=== PATIENT | female | born 1985 | race Caucasian/White ===

== ENCOUNTER 2017-02-06 12:00 | Emergency (ER) | payer OTHER | END 2017-02-06 13:10 | disposition left against medical advice (07) | LOC: ER1 12:00 | DX: Z53.21 Procedure and treatment not carried out due to patient leaving prior to being seen by health care provider (principal) ==

== ENCOUNTER 2017-02-06 21:50 | Emergency (ER) | payer OTHER ==
[2017-02-07 01:04] LABS: BUN/CREATININE RATIO 18 (0-10)
[2017-02-07 01:09] LABS: HEMOGLOBIN 13.5 gm/dl (12.3-15.3); WHITE BLOOD COUNT 9.7 K/UL (4.5-11.0)
[2017-02-07 01:12] LABS: RED BLOOD COUNT 4.56 M/UL (4.00-5.10)
== END 2017-02-07 03:00 | disposition home or self-care (01) ==
LOC: ER1 21:50
PROVIDERS: Physician Assistant
DX: F31.30 Bipolar disorder, current episode depressed, mild or moderate severity, unspecified (principal); F17.210 Nicotine dependence, cigarettes, uncomplicated; Z88.0 Allergy status to penicillin; Z79.899 Other long term (current) drug therapy
CPT/HCPCS: 36415; 80048; 80307; 85025; 99284; G0480